=== PATIENT | male | born 1985 | race Caucasian/White ===

== ENCOUNTER 2025-07-25 20:50 | Emergency (ER) | payer BC, MEDICAID ==
[~2025-07-25] VITALS: Ht 167.6 cm; Wt 64.0 kg
[2025-07-25 20:53] VITALS: BP 152/98; PULSE 84; RESP 18; TEMP 97.3; O2SAT 99
== END 2025-07-25 22:30 | disposition home or self-care (01) ==
LOC: ER 20:50
DX: F10.229 Alcohol dependence with intoxication, unspecified (principal); F41.9 Anxiety disorder, unspecified; I10 Essential (primary) hypertension; Y90.9 Presence of alcohol in blood, level not specified
CPT/HCPCS: 99283